=== PATIENT | male | born 1990 | race Caucasian/White ===

== ENCOUNTER 2021-01-03 16:43 | Outpatient (REF) | payer BC, SELFPAY ==
[2021-01-05 15:39] LABS: COVID-19 RT-PCR UVMMC Result Positive (Negative)
== END 2021-01-03 16:44 | disposition home or self-care (01) ==
LOC: LBN 16:43
PROVIDERS: Visit Provider Physician Assistant
DX: Z20.822 Contact with and (suspected) exposure to COVID-19 (principal); J06.9 Acute upper respiratory infection, unspecified
CPT/HCPCS: U0003